=== PATIENT | male | born 1960 | race Caucasian/White ===

== ENCOUNTER → 2020-12-17 09:23 | Outpatient (BNVA) | payer BC, SELFPAY | PROVIDERS: PCP Family Medicine; Visit Provider Urology ==

== ENCOUNTER → 2021-12-17 09:29 | Outpatient (BNVA) | payer BC, SELFPAY | PROVIDERS: PCP Family Medicine; Visit Provider Urology | DX: N40.1 Benign prostatic hyperplasia with lower urinary tract symptoms (principal); N52.01 Erectile dysfunction due to arterial insufficiency | CPT/HCPCS: 51798 ==

== ENCOUNTER 2022-12-22 09:11 | Outpatient (AMB) | payer BC, SELFPAY ==
--- NOTE | 2022-12-22 09:36 | A.OFFVIS_ITS ---
Intake Intake Visit Reasons: 1Y PVR Intake Note: Patient is present for PVR Urology Med: Sildenafil Antibiotic Allergy: None Blood Thinner: None Pharmacy: [facility] PVR: 0 Allergies No Known Allergies Allergy (Verified 12/22/22 09:38) Medication List - Last Reconciled 12/22/22 by Francisco James MD amlodipine 10 mg PO DAILY doxycycline hyclate 100 mg PO BID hydrochlorothiazide 25 mg PO DAILY ivermectin 1% appl topical BID metronidazole 0.75% appl topical BID sildenafil 100 mg PO DAILY PRN 90 days valsartan 160 mg PO DAILY valsartan 320 mg PO DAILY HPI HPI Comments History of Present Illness Details Andrade HARDY is a very pleasant male. He is a patient of Dr Lagunas. He is seen for the following urologic conditions. - lower urinary tract symptoms - erectile dysfunction Doing well Minimal urinary issues currently PSA stable and does not need to be checked for a couple years Discussed weight loss Does use CPAP machine Erections stable with sildenafil 12 month follow-up Lower Urinary Tract Symptoms:? Current visit is for?further evaluation of, lower urinary tract symptoms, predominate obstructive symptoms ?- improvement with less nocturia ?- yearly review. PSA discussed. Lower PSA indicative of smaller prostate - off alpha blockers ? Current treatment includes? - none previous medication, alpha garcia.? Prostate Symptom Score?04/23 , Moderate (9-19), Bother 2 ?05/24 , Mild (0-8), Bother 2.? Symptoms include?04/23 , incomplete emptying, weak stream, straining, and are progressing ?05/24 , incomplete emptying, weak stream, and are improving.? PSA?11/21 0.6, 11/24 0.6 ? Associated conditions? erectile dysfunction ?Yes ? Testing at next visit will include?bladder scan Erectile dysfunction:? Doing well with 100 mg ? He presents today for?for continued evaluation and management of erectile dysfunction.? Symptoms have been present for/since?using leveitra 10mg for a number of years - insurance $50 for 4 per month.? Current treatment includes?Levitra/vardenafil ?05/24 , Viagra/sildenafil.? Treatment side effects include?none.? At this time he experiences erections?04/23 are partial and adequate for vaginal penetration, that last until ejaculation, ZHEN 12-16 Mild-Moderate ED ?05/24 , are full, rigid and adequate for vaginal penetration, that last until ejaculation.? Nocturnal erections?do occur.? Currently they are?in a stable relationship.? Associated problems? hypertension ?Yes ? diabetes ?No ? dyslipidemia ?Yes ? Overall he is ?satisfied with the current management.? Therapeutic plan includes?continue generic viagra.? [facility] Medical History Benign prostatic hyperplasia with lower urinary tract symptoms Erectile dysfunction due to arterial insufficiency Incomplete emptying of bladder Surgical History History of surgery Review of Systems Const Denies chills and Denies fever(s) Card Reports no additional complaints and Denies syncope Resp Denies cough GI Denies abdominal pain and Denies heartburn Reports as per HPI and Denies change in libido Neuro Denies syncope Psych Denies change in libido Endo Denies change in libido Physical Exam Const General: cooperative, healthy appearing, comfortable and no acute distress Orientation/consciousness: patient oriented x3 HEENT Face and sinus: Yes normal facial exam Mouth: moist mucous membranes Neck Neck: Yes normal visual inspection, Yes full ROM and Yes trachea midline Chest Chest palpation & inspection: normal inspection of the chest Resp Effort & Inspection: normal respiratory effort, able to speak in complete sentences and no respiratory distress GI Inspection: Yes normal to inspection Back/Spine/Pelvis Cervical Spine: normal cervical lordosis Thoracic/Lumbar Spine: thoracic and lumbar spine normal to inspection Skin General skin exam: no rashes or lesions noted Neuro General: patient oriented x3, gait normal, tone normal and moves all extremities Extrem General: Yes normal to inspection and Yes capillary refill normal Office Procedures Post Void Residual Post Residual Void Post Void Residual (PVR): 0 [id number]-[id number] Void Residual by ultrasound Results AMB Urinalysis, Automated UA Leukoctes 0 Domitila/uL Last Edit by Jen Lai [facility] on 12/22/22 09:52 UA Nitrite Negative Last Edit by Jen Lai [facility] on 12/22/22 09:52 UA Urobilinogen 0.2 mg/dL Last Edit by Jen Lai A on 12/22/22 09:5 2 UA Protein 0 mg/dL Last Edit by Jen Lai [facility] on 12/22/22 09:52 UA pH 6.0 Last Edit by Jen Lai A on 12/22/22 09:52 UA Blood 0 Man/uL Last Edit by Jen Lai [facility] on 12/22/22 09:52 UA Specific [place] 1.015 Last Edit by Jen Lai A on 12/22/22 09: 52 UA Ketone Negative Last Edit by Jen Lai [facility] on 12/22/22 09:52 UA Bilirubin 0 mg/dL Last Edit by Jen Lai [facility] on 12/22/22 09:52 UA Glucose 0 mg/dL Last Edit by Jen Lai [facility] on 12/22/22 09:52 Results Reviewed Results Reviewed: Laboratory Last Values Urine pH (Auto) 6.0 12/22/22 09:48 Specific [place] (Auto) 1.015 12/22/22 09:48 Urine Protein (Auto) 0 mg/dL 12/22/22 09:48 Glucose (UA)(Auto) 0 mg/dL 12/22/22 09:48 Urine Ketones (Auto) Negative 12/22/22 09:48 Urine Blood (Auto) 0 Man/uL 12/22/22 09:48 Urine Nitrite (Auto) Negative 12/22/22 09:48 Urine Bilirubin (Auto) 0 mg/dL 12/22/22 09:48 Urine Urobilinogen (Auto) 0.2 mg/dL 12/22/22 09:48 Leukocyte Esterase (Auto) 0 Domitila/uL 12/22/22 09:48 Assessment & Plan Assessment & Plan (1) Incomplete emptying of bladder: Code(s): R33.9 - Retention of urine, unspecified (2) Erectile dysfunction due to arterial insufficiency: Code(s): N52.01 - Erectile dysfunction due to arterial insufficiency (3) Benign prostatic hyperplasia with lower urinary tract symptoms: Code(s): N40.1 - Benign prostatic hyperplasia with lower urinary tract symptoms Plan One year follow-up Orders: Orders AMB Post Void Residual by ultrasound Today R33.9 - Retention of urine, unspecified AMB Urinalysis Automated Today Z13.9 - Encounter for screening, unspecified Prostate Specific Antigen 364 Days N40.1 - Benign prostatic hyperplasia with lower urinary tract symptoms Patient Instructions: Imaging studies, laboratory and physical exam results were discussed and reviewed in detail. No major barriers to patient understanding were identified. An opportunity to ask questions regarding the treatment plan was provided. All questions were answered. The patient expressed understanding and agreement with the above treatment plan. The patient is aware they should contact our office by phone for worsening of their current condition or the appearance of new urologic symptoms. Compliance is encouraged with any medications and followup testing that is ordered. It is a privilege to participate in the urologic care of your patient. If you have any questions or concerns regarding treatment for the above conditions, or other urologic issues, please do not hesitate to contact me. The office telephone contact is [phone]. This note is constructed using voice recognition software. While every effort has been made to ensure accuracy management supervisor errors may have been included. Yours sincerely, Dr Francisco James MD, [facility] - Urology Providers of Expert, Compassionate Care for the Genitourinary System Coding Level of Care Code Est Pt Level 4 (52493) Diagnoses Incomplete emptying of bladder R33.9 Erectile dysfunction due to arterial insufficiency N52.01 Benign prostatic hyperplasia with lower urinary tract symptoms N40.1 CPT Codes Post Residual Void - PVR CPT Code: 86293-Gwls Void Residual by ultrasound ([id number])
== END 2022-12-22 11:49 | disposition home or self-care (01) ==
PROVIDERS: PCP Family Medicine; Visit Provider Urology
DX: R33.9 Retention of urine, unspecified (principal); N52.01 Erectile dysfunction due to arterial insufficiency; N40.1 Benign prostatic hyperplasia with lower urinary tract symptoms; Z13.9 Encounter for screening, unspecified
CPT/HCPCS: 99214

== ENCOUNTER → 2022-12-22 09:11 | Outpatient (BNVA) | payer BC, SELFPAY | PROVIDERS: Visit Provider Urology | DX: N40.1 Benign prostatic hyperplasia with lower urinary tract symptoms (principal); R33.8 Other retention of urine; N52.01 Erectile dysfunction due to arterial insufficiency | CPT/HCPCS: 51798; 81003 ==

== ENCOUNTER 2024-01-05 09:35 | Outpatient (AMB) | payer BC, SELFPAY ==
--- NOTE | 2024-01-05 09:54 | A.OFFVIS_ITS ---
Intake Visit Reasons: 1 yr follow up/ PSA(set) Intake Note: Patient is present for 1Y F/U PSA Urology Med: Sildenafil Antibiotic Allergy: None Blood Thinner: None [employer] Required: No Allergies No Known Allergies Allergy (Verified 01/05/24 09:55) HPI Comments Details: Andrade HARDY is a very pleasant male. He is a patient of Dr Lagunas. He is seen for the following urologic conditions. - lower urinary tract symptoms - erectile dysfunction Yearly follow-up Doing well Minimal urinary issues currently PSA stable and does not need to be checked for a couple years Discussed weight loss Does use CPAP machine May dose escalate with sildenafil up to 200 mg 12 month follow-up Lower Urinary Tract Symptoms:? Current visit is for?further evaluation of, lower urinary tract symptoms, predominate obstructive symptoms ?- improvement with less nocturia ?- yearly review. PSA discussed. Lower PSA indicative of smaller prostate - off alpha blockers ? Current treatment includes? - none previous medication, alpha garcia.? Prostate Symptom Score?04/23 , Moderate (9-19), Bother 2 ?05/24 , Mild (0-8), Bother 2.? Symptoms include?04/23 , incomplete emptying, weak stream, straining, and are progressing ?05/24 , incomplete emptying, weak stream, and are improving.? PSA?11/21 0.6, 11/24 0.6, 12/27 0.7 ? Associated conditions? erectile dysfunction ?Yes ? Testing at next visit will include?bladder scan Erectile dysfunction:? Doing well with 100 mg sildenafil on demand ? He presents today for?for continued evaluation and management of erectile dysfunction.? Symptoms have been present for/since?using leveitra 10mg for a number of years - insurance $50 for 4 per month.? Current treatment includes?Levitra/vardenafil ?05/24 , Viagra/sildenafil.? Treatment side effects include?none.? At this time he experiences erections?1/ are partial and adequate for vaginal penetration, that last until ejaculation, ZHEN 12-16 Mild-Moderate ED ?2/ , are full, rigid and adequate for vaginal penetration, that last until ejaculation.? Nocturnal erections?do occur.? Currently they are?in a stable relationship.? Associated problems? hypertension ?Yes ? diabetes ?No ? dyslipidemia ?Yes ? Overall he is ?satisfied with the current management.? Therapeutic plan includes?continue generic viagra.? [facility] Medical History Benign prostatic hyperplasia with lower urinary tract symptoms Erectile dysfunction due to arterial insufficiency Incomplete emptying of bladder Surgical History History of surgery Review of Systems Const Denies chills and Denies fever(s) Card Reports no additional complaints and Denies syncope Resp Denies cough GI Denies abdominal pain and Denies heartburn Reports as per HPI and Denies change in libido Neuro Denies syncope Psych Denies change in libido Endo Denies change in libido Physical Exam Const General: cooperative, healthy appearing, comfortable and no acute distress Orientation/consciousness: patient oriented x3 HEENT Face and sinus: Yes normal facial exam Mouth: moist mucous membranes Neck Neck: Yes normal visual inspection, Yes full ROM and Yes trachea midline Chest Chest palpation & inspection: normal inspection of the chest Resp Effort & Inspection: normal respiratory effort, able to speak in complete sentences and no respiratory distress GI Inspection: Yes normal to inspection Back/Spine/Pelvis Cervical Spine: normal cervical lordosis Thoracic/Lumbar Spine: thoracic and lumbar spine normal to inspection Skin General skin exam: no rashes or lesions noted Neuro General: patient oriented x3, gait normal, tone normal and moves all extremities Extrem General: Yes normal to inspection and Yes capillary refill normal Results AMB Urinalysis, Automated UA Leukoctes 0 Domitila/uL Last Edit by ANNIKA Urias on 01/05/24 10:24 UA Nitrite Negative Last Edit by ANNIKA Urias on 01/05/24 10:24 UA Urobilinogen 0.2 mg/dL Last Edit by Tom Lucio [facility] on 01/05/24 10:2 4 UA Protein 0 mg/dL Last Edit by Tom Lucio [facility] on 01/05/24 10:24 UA pH 6.0 Last Edit by Tom Luico [facility] on 01/05/24 10:24 UA Blood 10 Man/uL Last Edit by Tom Lucio [facility] on 01/05/24 10:24 UA Specific [place] 1.015 Last Edit [facility] on 01/05/24 10: 24 UA Ketone Negative Last Edit by Tom Lucio [facility] on 01/05/24 10:24 UA Bilirubin 0 mg/dL Last Edit [facility] on 01/05/24 10:24 UA Glucose 0 mg/dL Last Edit by Tom Lucio [facility] on 01/05/24 10:24 Results Reviewed Results Reviewed: Laboratory Last Values Urine pH (Auto) 6.0 01/05/24 10:23 Specific [place] (Auto) 1.015 01/05/24 10:23 Urine Protein (Auto) 0 mg/dL 01/05/24 10:23 Glucose (UA)(Auto) 0 mg/dL 01/05/24 10:23 Urine Ketones (Auto) Negative 01/05/24 10:23 Urine Blood (Auto) 10 Man/uL 01/05/24 10:23 Urine Nitrite (Auto) Negative 01/05/24 10:23 Urine Bilirubin (Auto) 0 mg/dL 01/05/24 10:23 Urine Urobilinogen (Auto) 0.2 mg/dL 01/05/24 10:23 Leukocyte Esterase (Auto) 0 Domitila/uL 01/05/24 10:23 Assessment & Plan Assessment & Plan (1) Incomplete emptying of bladder: Code(s): R33.9 - Retention of urine, unspecified Category: Medical (2) Erectile dysfunction due to arterial insufficiency: Code(s): N52.01 - Erectile dysfunction due to arterial insufficiency Category: Medical (3) Benign prostatic hyperplasia with lower urinary tract symptoms: Code(s): N40.1 - Benign prostatic hyperplasia with lower urinary tract symptoms Category: Medical Plan Twelve month follow-up Orders: Orders AMB Urinalysis Automated Today Z13.9 - Encounter for screening, unspecified Patient Instructions: Imaging studies, laboratory and physical exam results were discussed and reviewed in detail. No major barriers to patient understanding were identified. An opportunity to ask questions regarding the treatment plan was provided. All questions were answered. The patient expressed understanding and agreement with the above treatment plan. The patient is aware they should contact our office by phone for worsening of their current condition or the appearance of new urologic symptoms. Compliance is encouraged with any medications and followup testing that is ordered. It is a privilege to participate in the urologic care of your patient. If you have any questions or concerns regarding treatment for the above conditions, or other urologic issues, please do not hesitate to contact me. The office telephone contact is [phone]. This note is constructed using voice recognition software. While every effort has been made to ensure accuracy yarn examiner skeins errors may have been included. Yours sincerely, Dr Francisco James MD, [facility] - Urology Providers of Expert, Compassionate Care for the Genitourinary System Coding Level of Care Code Est Pt Level 4 (56783) Diagnoses Incomplete emptying of bladder R33.9 Erectile dysfunction due to arterial insufficiency N52.01 Benign prostatic hyperplasia with lower urinary tract symptoms N40.1
== END 2024-01-05 11:09 | disposition home or self-care (01) ==
PROVIDERS: PCP Family Medicine; Visit Provider Urology
DX: R33.9 Retention of urine, unspecified (principal); N52.01 Erectile dysfunction due to arterial insufficiency; N40.1 Benign prostatic hyperplasia with lower urinary tract symptoms; Z13.9 Encounter for screening, unspecified
CPT/HCPCS: 99214

== ENCOUNTER → 2024-01-05 09:35 | Outpatient (BNVA) | payer BC, SELFPAY | PROVIDERS: PCP Family Medicine; Visit Provider Urology | DX: N40.1 Benign prostatic hyperplasia with lower urinary tract symptoms (principal); R33.8 Other retention of urine; N52.01 Erectile dysfunction due to arterial insufficiency | CPT/HCPCS: 81003 ==

== ENCOUNTER 2025-01-04 08:24 | Outpatient (AMB) | payer BC, SELFPAY ==
--- NOTE | 2025-01-04 08:28 | MHC.OFFVIS ---
Intake Visit Reasons: 1 yr follow up Intake Note: Patient is present for 1Y F/U PSA Urology Med: Sildenafil Antibiotic Allergy: None Blood Thinner: None PVR:8 mls [employer] Supervisor Required: No Accompanied by: Self / Same As Patient Allergies No Known Allergies Allergy (Verified 01/04/25 08:29) HPI Comments Details: Andrade HARDY is a very pleasant male. He is a patient of Dr Lagunas. He is seen for the following urologic conditions. - lower urinary tract symptoms - erectile dysfunction - response to sildenafil p.r.n. Yearly follow-up Recently changed primary care Doing well Minimal urinary issues currently PSA stable and does not need to be checked for a couple years Does use CPAP machine May dose escalate with sildenafil up to 200 mg 12 month follow-up Lower Urinary Tract Symptoms:? Current visit is for?further evaluation of, lower urinary tract symptoms, predominate obstructive symptoms ?- improvement with less nocturia ?- yearly review. PSA discussed. Lower PSA indicative of smaller prostate - off alpha blockers ? Current treatment includes? - none previous medication, alpha garcia.? Prostate Symptom Score?04/23 , Moderate (9-19), Bother 2 ?2 , Mild (0-8), Bother 2.? Symptoms include?04/23 , incomplete emptying, weak stream, straining, and are progressing ?05/24 , incomplete emptying, weak stream, and are improving.? PSA?11/21 0.6, 11/24 0.6, 12/27 0.7 ? Associated conditions? erectile dysfunction ?Yes ? Testing at next visit will include?bladder scan Erectile dysfunction:? Doing well with 100 mg sildenafil on demand ? He presents today for?for continued evaluation and management of erectile dysfunction.? Symptoms have been present for/since?using leveitra 10mg for a number of years - insurance $50 for 4 per month.? Current treatment includes?Levitra/vardenafil ?05/24 , Viagra/sildenafil.? Treatment side effects include?none.? At this time he experiences erections?04/23 are partial and adequate for vaginal penetration, that last until ejaculation, ZHEN 12-16 Mild-Moderate ED ?05/24 , are full, rigid and adequate for vaginal penetration, that last until ejaculation.? Nocturnal erections?do occur.? Currently they are?in a stable relationship.? Associated problems? hypertension ?Yes ? diabetes ?No ? dyslipidemia ?Yes ? Overall he is ?satisfied with the current management.? Therapeutic plan includes?continue generic viagra.? [facility] Medical History Benign prostatic hyperplasia with lower urinary tract symptoms Erectile dysfunction due to arterial insufficiency Incomplete emptying of bladder Surgical History History of surgery Review of Systems Const Denies chills and Denies fever(s) Card Reports no additional complaints and Denies syncope Resp Denies cough GI Denies abdominal pain and Denies heartburn Reports as per HPI and Denies change in libido Neuro Denies syncope Psych Denies change in libido Endo Denies change in libido Physical Exam Const General: cooperative, healthy appearing, comfortable and no acute distress Orientation/consciousness: patient oriented x3 HEENT Face and sinus: Yes normal facial exam Mouth: moist mucous membranes Neck Neck: Yes normal visual inspection, Yes full ROM and Yes trachea midline Chest Chest palpation & inspection: normal inspection of the chest Resp Effort & Inspection: normal respiratory effort, able to speak in complete sentences and no respiratory distress GI Inspection: Yes normal to inspection Back/Spine/Pelvis Cervical Spine: normal cervical lordosis Thoracic/Lumbar Spine: thoracic and lumbar spine normal to inspection Skin General skin exam: no rashes or lesions noted Neuro General: patient oriented x3, gait normal, tone normal and moves all extremities Extrem General: Yes normal to inspection and Yes capillary refill normal Assessment & Plan Assessment & Plan (1) Incomplete emptying of bladder: Code(s): R33.9 - Retention of urine, unspecified Category: Medical (2) Erectile dysfunction due to arterial insufficiency: Code(s): N52.01 - Erectile dysfunction due to arterial insufficiency Category: Medical Plan Twelve month follow-up Patient Instructions: This note is constructed using voice recognition software. While every effort has been made to ensure accuracy deportation examiner errors may have been included. Imaging studies, laboratory and physical exam results were discussed and reviewed in detail. No major barriers to patient understanding were identified. An opportunity to ask questions regarding the treatment plan was provided. All questions were answered. The patient expressed understanding and agreement with the above treatment plan. The patient is aware they should contact our office by phone for worsening of their current condition or the appearance of new urologic symptoms. Compliance is encouraged with any medications and followup testing that is ordered. It is a privilege to participate in the urologic care of your patient. If you have any questions or concerns regarding treatment for the above conditions, or other urologic issues, please do not hesitate to contact me. The office telephone contact is [phone]. Sincerely, Dr Francisco James MD, [facility] - Urology Compassionate Specialist Care for the Genitourinary System Coding Level of Care Code Est Pt Level 3 (26996) Complex EM visit Add On G2211 Diagnoses Incomplete emptying of bladder R33.9 Erectile dysfunction due to arterial insufficiency N52.01
--- OUTSIDE RECORDS SUMMARY | 2025-01-04 08:42 | XMS_ITS | Clinical Summary ---
Author Organization [address] [facility] Address [address] [place] [address] Phone Care Team Providers Care Dot Compliance Manager Name Role Phone Chino Lagunas DO Primary Care Provider [phone] Allergies No known active allergies Medications amLODIPine (NORVASC) 10 mg tablet Take 1 tablet (10 mg total) by mouth 1 (one) time each day. 5 Active hydroCHLOROthia zide (HYDRODIURIL) 25 mg tablet Take 1 tablet (25 mg total) by mouth 1 (one) time each day. 5 Active metroNIDAZOLE (METROGEL) 1 % gel Apply topically 1 (one) time each day. 4 Active valsartan (DIOVAN) 160 mg tablet Take 1 tablet (160 mg total) by mouth 1 (one) time each day. 5 Active Active Problems Problem Noted Date Diagnosed Date Woods's esophagus 11/23/2024 Benign essential hypertension 11/23/2024 Benign prostatic hyperplasia 11/23/2024 Hyperlipemia 11/23/2024 Impaired fasting glucose 11/23/2024 Severe obesity (CMS/HCC V24, CMS/HCC V28) 2024 Sleep apnea 11/23/2024 Rosacea 11/15/2018 Encounters Date Type Department Care Team Description 11/23/2024 9:30 AM EDT Office Visit Pulmonology [facility] [address] [facility] [address] [place] [address] Brian Curtis MD Obesity (BMI 30-39.9) (Primary Dx); Primary hypertension; Obstructive sleep apnea; Gastroesophageal reflux disease without esophagitis from Last 3 Months Social History Tobacco Use Types Packs/Day Years Used Date Smoking Tobacco: Never Smokeless Tobacco: Never Tobacco Cessation:Counseling Given: Not Answered Sex and Gender Information Value Date Recorded Sex Assigned at Not on file Legal Sex Male 5:36 PM EST Gender Identity Not on file Sexual Orientation Not on file Obstetrics History Last Filed Vital Signs Vital Sign Reading Time Taken Comments Blood Pressure 155/89 11/23/2024 9:51 AM EDT Pulse 59 11/23/2024 9:51 AM EDT Temperature 36.3 C (97.3 F) 11/23/2024 9:51 AM EDT Respiratory Rate 20 11/23/2024 9:51 AM EDT Oxygen Saturation 98% 11/23/2024 9:51 AM EDT Inhaled Oxygen Concentration - - Weight 121 kg (266 lb) 11/23/2024 9:51 AM EDT Height 177.8 cm (5' 10 ) 11/23/2024 9:51 AM EDT Body Mass Index 38.17 11/23/2024 9:51 AM EDT Plan of Treatment Upcoming Encounters Date Type Department Care Team (Late st Contact Info) Description 05/24/2025 9:30 AM EST Office Visit Pulmonology - [address] [place] [address] Brian Curtis MD [address] [place] [phone] Health Maintenance Due Date Last Done Comments Colorectal Cancer Screening: Colonoscopy 1960 Pneumococcal Vaccine: 50+ Years (1 of 1 - PCV) 2012 Cholesterol Screening (Lipid Panel) 03/14/2022 HIV Screening 03/14/2022 Hepatitis C Screening 03/14/2022 Social Influencers of Health Screening 03/14/2022 Depression Screening 04/05/2024 Hypertension/CHF/CAD Annual BMP Blood Test 11/23/2024 COVID-19 Vaccine ( season) 2024 03/16/2021, 05/15/2020, 04/17/2020 Influenza Vaccine (#1) 2024 4, 01/04/2023, 12/24/2021, Additional history exists DTaP,Tdap,and Td Vaccines (2 - Td or Tdap) 01/04/2027 01/04/2017 Zoster Vaccines Completed 08/30/2018, 03/15/2018 RSV Immunization Adult Patients Completed 01/18/2023 HIB Vaccines Aged Out No longer eligi ble based on patient's age to complete this topic HPV Vaccines Aged Out No longer eligi ble based on patient's age to complete this topic Hepatitis A Vaccines Aged Out No long er eligible based on patient's age to complete this topic Hepatitis B Vaccines Aged Out No long er eligible based on patient's age to complete this topic IPV Vaccines Aged Out No longer eligi ble based on patient's age to complete this topic MMR Vaccines Aged Out No longer eligi ble based on patient's age to complete this topic Meningococcal ACWY Vaccine Aged Out N o longer eligible based on patient's age to complete this topic Meningococcal B Vaccine Aged Out No l onger eligible based on patient's age to complete this topic RSV Immunization Patients Under 20 months Aged Out No longer eligible based on patient's age to complete this topic Varicella Vaccines Aged Out No longer eligible based on patient's age to complete this [place] [id number] [facility] Care Teams Dot Compliance Manager Relationship Specialty Start Date End Date Chino Lagunas DO [address] [place], [place] PCP - General 07/21/17
== END 2025-01-04 09:09 | disposition home or self-care (01) ==
LOC: HO.HUSH 08:25
PROVIDERS: PCP Family Medicine; Visit Provider Urology
DX: R33.9 Retention of urine, unspecified (principal); N52.01 Erectile dysfunction due to arterial insufficiency; N40.1 Benign prostatic hyperplasia with lower urinary tract symptoms
CPT/HCPCS: 99213

== ENCOUNTER → 2025-01-04 08:24 | Outpatient (BNVA) | payer BC, SELFPAY | PROVIDERS: PCP Family Medicine; Visit Provider Urology | DX: R33.9 Retention of urine, unspecified (principal); N52.01 Erectile dysfunction due to arterial insufficiency | CPT/HCPCS: 51798; 81003 ==